=== PATIENT | female | born 1960 | race Caucasian/White ===

== ENCOUNTER 2018-03-21 06:57 | Day surgery (SDC) | payer OTHER ==
[~2018-03-21 06:57] MED LIST: Buffered Lidocaine 0.9% SYRIN* 5 ML/SYR SYRINGE INTRADERM ONE
[2018-03-21] MEDS ORDERED: fentaNYL* 50 MCG/ML 2 ML VIAL (100 MCG VIAL) ONE (07:40)
[2018-03-21] MEDS ORDERED: Bupivacaine 0.25% SDV PF* 10 ML VIAL INJ ONE (07:41)
[2018-03-21] MEDS ORDERED: Naloxone* 0.4 MG/ML 1 ML VIAL IV PRN (08:06)
[2018-03-21] MEDS ORDERED: Ondansetron INJ* 2 MG/ML VIAL IV PRN (08:06)
[2018-03-21 08:44] VITALS: BP 130/72
--- NOTE | 2018-03-21 11:18 | OP ---
DATE OF OPERATION: 03/21/18 [facility] DATE OF : 58 SURGEON: Simón France MD. BEDSPREAD CUTTER: SHAWNA Pruett. ANESTHESIOLOGIST: Dr. Mcgowan. ANESTHESIA: Local MAC. PRE-OP DIAGNOSIS: Left long trigger finger. POST-OP DIAGNOSIS: Left long trigger finger. OPERATIVE PROCEDURE: Release of A1 beronica, left long trigger finger, with debridement of significantly frayed flexor digitorum superficialis tendon. INDICATIONS: Sondra has a chronic trigger finger. We had talked about risks and benefits. She wanted to proceed with surgery. ESTIMATED BLOOD LOSS: 1 mL. COMPLICATIONS: None. FINDINGS: See above and below. DESCRIPTION OF PROCEDURE: Sondra was seen in the preoperative holding area. The correct side and site of the procedure were identified. We came back to the operating room where the arm was prepped and draped in the usual fashion and time- out was performed. The arm was exsanguinated with an Esmarch and the tourniquet inflated to 250 mmHg. I had already infiltrated Marcaine around the operative area. I made an oblique incision in line with her distal kwok crease over the middle finger. Dissection was carried down through the subcutaneous tissue and everything was released off the tendon sheath. The digital nerves were protected with Ragnell retractors. I then incised the A1 beronica longitudinally along the radial third with the 15 blade. This was extended distally and proximally with a tenotomy scissors. Once the release was complete, there was quite a bit of frayed FDS tendon. This was all excised back to nice smooth edges with the tenotomy scissors. I then had her open and close hand many times and she could not induce any triggering. We therefore irrigated out the wound. Skin was closed with 4-0 nylon suture. The wound was dressed with soft dressing and she was taken to the recovery room in stable condition. [id number]/[facility] #: [id number] [facility]
== END 2018-03-21 08:41 | disposition home or self-care (01) ==
LOC: OREAST 06:57
PROVIDERS: ATTEND Orthopaedic Surgery Hand Surgery
DX: M65.332 Trigger finger, left middle finger (principal); M19.90 Unspecified osteoarthritis, unspecified site; K58.9 Irritable bowel syndrome, unspecified; J30.89 Other allergic rhinitis
CPT/HCPCS: J3010; J3490